=== PATIENT | female | born 1950 | race Caucasian/White ===

== ENCOUNTER 2017-10-03 | Day surgery (SDC) | END 2017-10-03 12:18 | disposition home or self-care (01) ==

== ENCOUNTER → 2018-07-11 | Outpatient (CLI) | payer OTHER ==
[~2018-07-11] MED LIST: AMLO5 PO; CITA20 PO; COCONUT OIL1000 MG PO; HYDR1TAB94 PO; LANS15EC PO; Lovastatin20 MG PO; MAGNESIUM PO; METO50ER PO; Mirapex0.125 MG PO; TRAZ100 PO
[2018-07-11 19:27] LABS: BASOPHILS ABSOLUTE AUTO 0.02 K/mm3 (0.00-0.23); BASOPHILS PERCENT AUTO 0 % (0-2); EOSINOPHILS ABSOLUTE AUTO 0.23 K/mm3 (0.00-0.68); EOSINOPHILS PERCENT AUTO 4 % (0-6); Hematocrit 38.6 % (33.0-51.0); Hemoglobin 12.8 g/dL (11.5-16.0); IMMATURE GRAN ABSOLUTE AUTO 0.03 K/mm3 (0.00-0.10); IMMATURE GRAN PERCENT AUTO 1 % (0-1); LYMPHOCYTES PERCENT AUTO 29 % (21-46); MONOCYTES ABSOLUTE AUTO 0.52 K/mm3 (0.16-1.47); MONOCYTES PERCENT AUTO 9 % (4-13); Mean Corpuscular HGB 29.8 pg (26.0-34.0); Mean Corpuscular HGB Conc 33.2 g/dL (31.5-36.5); Mean Corpuscular Volume 90 fL (80-100); Mean Platelet Volume 11.3 fL (9.1-12.4); NEUTROPHILS ABSOLUTE AUTO 3.43 K/mm3 (1.96-9.15); NEUTROPHILS PERCENT AUTO 58 % (41-73); Platelet Count 247 K/mm3 (150-400); RDW Coefficient Variation 13.7 % (11.7-14.2); RDW Standard Deviation 44.8 fL (35.1-46.3); White Blood Cell Count 5.93 K/mm3 (4.00-11.30)
== END | disposition home or self-care (01) ==
LOC: LAB SHORT 18:54 → LAB 18:54
PROVIDERS: Hospitalist
DX: D50.9 Iron deficiency anemia, unspecified (principal)
CPT/HCPCS: 83540; 83550; 85025

== ENCOUNTER 2020-11-10 10:43 | Day surgery (SDC) | payer OTHER ==
[~2020-11-10] VITALS: Ht 157.5 cm; Wt 98.3 kg
[~2020-11-10 10:43] MED LIST changes: +INULIN PO; +MECL25 PO
== END 2020-11-10 12:47 | disposition home or self-care (01) ==
LOC: ORSCSDS 10:43
PROVIDERS: Surgery
PROC: 0DBL8ZX Excision of Transverse Colon, Via Natural or Artificial Opening Endoscopic, Diagnostic (ICD-10-PCS; principal; 2020-11-10 12:00)
PROC: 0DBN8ZX Excision of Sigmoid Colon, Via Natural or Artificial Opening Endoscopic, Diagnostic (ICD-10-PCS; principal; 2020-11-10 12:00)
PROC: 3E0H8KZ Introduction of Other Diagnostic Substance into Lower GI, Via Natural or Artificial Opening Endoscopic (ICD-10-PCS; principal; 2020-11-10 12:00)
DX: Z12.11 Encounter for screening for malignant neoplasm of colon (principal); Z85.038 Personal history of other malignant neoplasm of large intestine; D12.3 Benign neoplasm of transverse colon; D12.5 Benign neoplasm of sigmoid colon; K57.30 Diverticulosis of large intestine without perforation or abscess without bleeding; K21.9 Gastro-esophageal reflux disease without esophagitis; E78.5 Hyperlipidemia, unspecified; I10 Essential (primary) hypertension; G47.33 Obstructive sleep apnea (adult) (pediatric); Z79.899 Other long term (current) drug therapy
CPT/HCPCS: 88305; J2704

== ENCOUNTER → 2021-08-19 | Outpatient (CLI) | payer OTHER ==
[2021-08-19 15:50] LABS: Anion Gap 2 mmol/L (6-16); Blood Urea Nitrogen 8 mg/dL (8-24); Bun/Creatinine Ratio 9.1 (12.0-20.0); CO2, Blood 34 mmol/L (21-32); Calcium, Blood 9.1 mg/dL (8.5-10.1); Chloride, Blood 103 mmol/L (98-108); Creatinine, Blood 0.88 mg/dL (0.40-1.00); Glomerular Filtration Rate >60 (60-); Glucose, Blood 165 mg/dL (70-99); Potassium, Blood 3.9 mmol/L (3.5-5.5); Sodium, Blood 139 mmol/L (136-145)
== END | disposition home or self-care (01) ==
LOC: LAB SHORT 11:40
PROVIDERS: Hospitalist
DX: I10 Essential (primary) hypertension (principal)
CPT/HCPCS: 80048

== ENCOUNTER → 2023-12-25 | Outpatient (CLI) | payer OTHER ==
[2023-12-28 21:48] LABS: ANTINUCLEAR AB (ANA),HEP-2,IGG <1:80 (<1:80)
== END | disposition home or self-care (01) ==
LOC: LAB 17:32 → LAB SHORT 17:32
PROVIDERS: Hospitalist
DX: M25.50 Pain in unspecified joint (principal)
CPT/HCPCS: 85651; 86039; 86430

== ENCOUNTER 2024-12-26 07:42 | Day surgery (SDC) | payer OTHER ==
[~2024-12-26] VITALS: Ht 157.5 cm; Wt 110.3 kg
[~2024-12-26 07:42] MED LIST changes: +ALPRAZOLAM0.5 M1 PO; +Balanced Salt Epinephrine Irrigation Solution 500 mL IR SCH; +COCONUT OIL; +Moxifloxacin HCL 0.5 MG/0.1 ML 0.4MLSYR LEFTEYE SCH; +Ondansetron 4 MG SoluTab MM PRN; +PHENYLEPHRINE\\TROPICAMIDE\\TETRACAINE OPHTHALMIC DILATING SOLN LEFTEYE PRN; +Povidone-Iodine 450 DROP/30 ML Solution LEFTEYE SCH; +Povidone-Iodine 450 DROP/30 ML Solution ONE; +Tetracaine HCl/Pf 0.5% Opth Soln 4 ml ONE; +Triamcinolone Inj Susp 40 MG / ML 1ML Vial INJ SCH; +Triamcinolone Inj Susp 40 MG / ML 1ML Vial ONE
--- NOTE | 2024-12-26 08:59 | NUR ---
12/26/24 0859 Eileen Ramey ANXIETY PRIOR TO VALIUM WAS 5/10. vALIUM 10MG GIVEN AT 0843. pULSE OX IN PLACE SHOWING SPO2 AT 94%. TETRACAINE IN AT 0846 PLEDGETT IN AT 0847 PT TOLERATED WELL. CALL LIGHT WITHIN REACH.
--- NOTE | 2024-12-26 09:25 | NUR ---
12/26/24 0925 Yumiko Doherty HR: 64 BP: 151/73 SPO2: 95% ON 10L BLOW BY O2
[2024-12-26 09:46] VITALS: BP 132/67
--- NOTE | 2024-12-26 09:47 | NUR ---
12/26/24 0947 Briseyda Santillan RN CALLED SON AND GAVE ESTIMATED DISCHARGE TIME
== END 2024-12-26 09:58 | disposition home or self-care (01) ==
LOC: ORSCSDS 07:42
PROVIDERS: Ophthalmology
PROC: 08RK3JZ Replacement of Left Lens with Synthetic Substitute, Percutaneous Approach (ICD-10-PCS; principal; 2024-12-26 09:30)
DX: H25.813 Combined forms of age-related cataract, bilateral (principal); E78.5 Hyperlipidemia, unspecified; I10 Essential (primary) hypertension; Z79.899 Other long term (current) drug therapy
CPT/HCPCS: A9270; J3301; V2632

== ENCOUNTER 2025-01-02 07:52 | Day surgery (SDC) | payer OTHER ==
[~2025-01-02] VITALS: Ht 157.5 cm; Wt 109.8 kg
[~2025-01-02 07:52] MED LIST changes: -Moxifloxacin HCL 0.5 MG/0.1 ML 0.4MLSYR LEFTEYE SCH; +Moxifloxacin HCL 0.5 MG/0.1 ML 0.4MLSYR RIGHTEYE SCH; -PHENYLEPHRINE\\TROPICAMIDE\\TETRACAINE OPHTHALMIC DILATING SOLN LEFTEYE PRN; +PHENYLEPHRINE\\TROPICAMIDE\\TETRACAINE OPHTHALMIC DILATING SOLN RIGHTEYE PRN; -Povidone-Iodine 450 DROP/30 ML Solution LEFTEYE SCH; +Povidone-Iodine 450 DROP/30 ML Solution RIGHTEYE SCH
--- NOTE | 2025-01-02 08:53 | NUR ---
01/02/25 0853 Eileen Raemy PTS ANXIETY WAS A 4/10 PRIOR TO VALIUM WHICH WAS GIVEN AT 0846. PULSE OXIMETRY IN PLACE SHOWING SPO2 95% ON RA. TETRACAINE IN AT 0847 PLEDGETT IN AT 0848 PT TOLERATED WELL. CALL LIGHT IN REACH.
--- NOTE | 2025-01-02 09:21 | NUR ---
01/02/25 0921 Ca Nelson VITALS AT 0918 BP: 201/90 (OK TO PROCEED PER DR ALDRICH) P: 69 O2: 100% WITH 10 LITERS OF BLOW BY OXYGEN
[2025-01-02 09:36] VITALS: BP 183/76
== END 2025-01-02 09:54 | disposition home or self-care (01) ==
LOC: ORSCSDS 07:52
PROVIDERS: Ophthalmology
PROC: 08RJ3JZ Replacement of Right Lens with Synthetic Substitute, Percutaneous Approach (ICD-10-PCS; principal; 2025-01-02 09:30)
DX: H25.811 Combined forms of age-related cataract, right eye (principal); Z96.1 Presence of intraocular lens; I10 Essential (primary) hypertension; E78.5 Hyperlipidemia, unspecified; G47.33 Obstructive sleep apnea (adult) (pediatric); G25.81 Restless legs syndrome; K21.9 Gastro-esophageal reflux disease without esophagitis; E66.9 Obesity, unspecified; Z79.899 Other long term (current) drug therapy
CPT/HCPCS: A9270; J3301; V2632

== ENCOUNTER 2025-01-02 16:28 | Inpatient (IN) | payer OTHER ==
[~2025-01-02] VITALS: Ht 157.5 cm; Wt 111.2 kg
[~2025-01-02 16:28] MED LIST changes: -Balanced Salt Epinephrine Irrigation Solution 500 mL IR SCH; -Moxifloxacin HCL 0.5 MG/0.1 ML 0.4MLSYR RIGHTEYE SCH; -Ondansetron 4 MG SoluTab MM PRN; -PHENYLEPHRINE\\TROPICAMIDE\\TETRACAINE OPHTHALMIC DILATING SOLN RIGHTEYE PRN; -Povidone-Iodine 450 DROP/30 ML Solution ONE; -Povidone-Iodine 450 DROP/30 ML Solution RIGHTEYE SCH; -Tetracaine HCl/Pf 0.5% Opth Soln 4 ml ONE; -Triamcinolone Inj Susp 40 MG / ML 1ML Vial INJ SCH; -Triamcinolone Inj Susp 40 MG / ML 1ML Vial ONE
[2025-01-02] MEDS ORDERED: Ondansetron HCl 2 MG / ML 2ML Vial IV ONE (16:50)
[2025-01-02 16:57] LABS: BASOPHILS ABSOLUTE AUTO 0.01 K/mm3 (0.00-0.23); BASOPHILS PERCENT AUTO 0 % (0-2); EOSINOPHILS ABSOLUTE AUTO 0.08 K/mm3 (0.00-0.68); EOSINOPHILS PERCENT AUTO 2 % (0-6); Hematocrit 32.6 % (33.0-51.0); Hemoglobin 10.1 g/dL (11.5-16.0); IMMATURE GRAN ABSOLUTE AUTO 0.05 K/mm3 (0.00-0.10); IMMATURE GRAN PERCENT AUTO 1 % (0-1); LYMPHOCYTES ABSOLUTE AUTO 1.06 K/mm3 (0.84-5.20); LYMPHOCYTES PERCENT AUTO 20 % (21-46); MONOCYTES ABSOLUTE AUTO 0.67 K/mm3 (0.16-1.47); MONOCYTES PERCENT AUTO 13 % (4-13); Mean Corpuscular HGB Conc 31.0 g/dL (31.5-36.5); Mean Corpuscular Volume 80 fL (80-100); NEUTROPHILS ABSOLUTE AUTO 3.43 K/mm3 (1.96-9.15); NEUTROPHILS PERCENT AUTO 65 % (41-73); NRBC ABSOLUTE 0.00 K/mm3 (0.00-0.02); NRBC Auto 0.0 /100 WBC (0.0-0.2); Platelet Count 198 K/mm3 (150-400); RDW Coefficient Variation 16.3 % (11.7-14.2); RDW Standard Deviation 47.0 fL (35.1-46.3)
[2025-01-02] MEDS ORDERED: Albuterol Soln 2.5 MG/0.5 ML UD INH SCH (17:15)
[2025-01-02 17:20] LABS: Alanine Aminotransfer (ALT/SGP 28.0 U/L (12-78); Albumin, Blood 3.6 g/dL (3.4-5.0); Albumin/Globulin Ratio 1.1 (0.8-1.8); Anion Gap 7.0 mmol/L (3-11); Aspartate Aminotrans (AST/SGOT 23.0 U/L (12-37); Bilirubin, Total 1.1 mg/dL (0.1-1.0); Blood Urea Nitrogen 6.0 mg/dL (8-24); CO2, Blood 31.0 mmol/L (21-32); Calcium, Blood 9.1 mg/dL (8.5-10.1); Chloride, Blood 102.0 mmol/L (98-108); Creatinine, Blood 0.87 mg/dL (0.40-1.00); Globulin, Blood 3.3 g/dL (2.2-4.0); Glucose, Blood 167.0 mg/dL (70-99); Potassium, Blood 3.4 mmol/L (3.5-5.5); Sodium, Blood 137.0 mmol/L (136-145); Total Protein, Blood 6.9 g/dL (6.4-8.2)
[2025-01-02] MEDS ORDERED: Albuterol 2.5 MG/3 ML VIAL INH SCH (17:35)
[2025-01-02] MEDS ORDERED: Albuterol 2.5 MG/3 ML VIAL INH ONE (17:40)
[2025-01-02 17:45] LABS: CORONAVIRUS COVID-19 AG Negative (NEGATIVE)
[2025-01-02] MEDS ORDERED: CefTRIAXone Sodium 1,000 MG in NS 100 ML IV ONE (19:25)
[2025-01-02] MEDS ORDERED: Ondansetron HCl 2 MG / ML 2ML Vial IV PRN (20:45)
[2025-01-02] MEDS ORDERED: Lactobacil 2-S.Thermo-Bifido 1 1 Cap PO SCH (21:00)
[2025-01-02] MEDS ORDERED: NS 1,000 ML IV ONE ×2 (21:00→23:55)
[2025-01-02] MEDS ORDERED: NS 1,000 ML IV SCH (22:00)
[2025-01-02 22:33] VITALS: BP 169/64
--- NOTE | 2025-01-02 23:58 | NUR ---
CRITICAL LAB: LACTIC 3.2 LACTIC INCREASED FROM 2.7 EARLIER S/P 1000ML NS BOLUS FROM ER. SPOKE WITH EARL MAHONEY NP AND RECEIVED ORDERS TO GIVE ONE TIME BOLUS 1000ML NS IV NOW AND RECHECK LACTIC WITH AM LABS. BOTH ENTERED.
--- NOTE | 2025-01-03 00:14 | NUR ---
NS @ 100 PAUSED WHILE BOLUS NS INFUSING.
--- NOTE | 2025-01-03 02:15 | NUR ---
Bolus NS completed. NS @ 100mLs/hour resumed.
[2025-01-03 03:44] VITALS: BP 135/62
[2025-01-03 06:13] LABS: BASOPHILS ABSOLUTE AUTO 0.01 K/mm3 (0.00-0.23); BASOPHILS PERCENT AUTO 0 % (0-2); EOSINOPHILS ABSOLUTE AUTO 0.02 K/mm3 (0.00-0.68); EOSINOPHILS PERCENT AUTO 1 % (0-6); Hematocrit 28.6 % (33.0-51.0); Hemoglobin 8.8 g/dL (11.5-16.0); IMMATURE GRAN ABSOLUTE AUTO 0.05 K/mm3 (0.00-0.10); IMMATURE GRAN PERCENT AUTO 1 % (0-1); LYMPHOCYTES ABSOLUTE AUTO 0.92 K/mm3 (0.84-5.20); LYMPHOCYTES PERCENT AUTO 24 % (21-46); MONOCYTES ABSOLUTE AUTO 0.58 K/mm3 (0.16-1.47); MONOCYTES PERCENT AUTO 15 % (4-13); Mean Corpuscular HGB Conc 30.8 g/dL (31.5-36.5); Mean Corpuscular Volume 82 fL (80-100); NEUTROPHILS ABSOLUTE AUTO 2.33 K/mm3 (1.96-9.15); NEUTROPHILS PERCENT AUTO 60 % (41-73); NRBC ABSOLUTE 0.00 K/mm3 (0.00-0.02); NRBC Auto 0.0 /100 WBC (0.0-0.2); Platelet Count 164 K/mm3 (150-400); RDW Coefficient Variation 16.9 % (11.7-14.2); RDW Standard Deviation 50.5 fL (35.1-46.3)
[2025-01-03 06:31] LABS: Anion Gap 7.0 mmol/L (3-11); Blood Urea Nitrogen 5.0 mg/dL (8-24); CO2, Blood 28.0 mmol/L (21-32); Calcium, Blood 7.6 mg/dL (8.5-10.1); Chloride, Blood 110.0 mmol/L (98-108); Creatinine, Blood 0.78 mg/dL (0.40-1.00); Glucose, Blood 137.0 mg/dL (70-99); Potassium, Blood 4.1 mmol/L (3.5-5.5); Sodium, Blood 141.0 mmol/L (136-145)
[2025-01-03 07:39] VITALS: BP 161/67
--- NOTE | 2025-01-03 07:41 | NUR ---
Shift Summary AOx4. Arrived to unit at 2227 via gurney and self transferred to bed. Pleasant/cooperative. Following instructions well. States feeling weaker than usual. Instructed to call for assistance w/ ambulation to bathroom considering new oxygen supplementation needs, connected IV lines, and shortness of breath. Independent to the bedside commode. Denies dizziness. F/U lactic this am is 1.6 from 3.2. NS @ 100 continuous. Tolerating CPAP the whole night. Denies pain. Did not want to get into a hospital gown. Continent w/ bowel and bladder. Calls appropriately for needs.
[2025-01-03] MEDS ORDERED: Enoxaparin 40 MG/0.4 ML SYR SC SCH (09:00)
[2025-01-03] MEDS ORDERED: Albuterol Soln 2.5 MG/0.5 ML UD INH PRN (11:10)
[2025-01-03] MEDS ORDERED: Albuterol 2.5 MG/3 ML VIAL ONE (11:25)
[2025-01-03 14:45] LABS: Ferritin, Serum 15.0 ng/mL (8-252); Total Iron Binding Capacity 376.0 ug/dL (250-450)
[2025-01-03 15:03] VITALS: BP 177/64
[2025-01-03] MEDS ORDERED: Ketorolac 0.5% Opth Soln BTL RIGHTEYE SCH ×2 (17:00)
[2025-01-03] MEDS ORDERED: PrednisoLONE 1% Opth Susp 5 ML RIGHTEYE SCH ×2 (17:00)
[2025-01-03] MEDS ORDERED: Ofloxacin 0.3% Opth Soln 5 ML RIGHTEYE SCH ×2 (17:00)
--- NOTE | 2025-01-03 18:21 | NUR ---
SHIFT SUMMARY PT CONT LEVEL OF CARE. PT NOTED TO BE A&OX4 AND IND IN ROOM PT CALLS APPRORIATE AND IS ABLE TO COMMUNICATE HER NEEDS. PT HAD CATARACT SURGERY TO HER RIGHT EYE 01/02 AND WAS RESTARTED TODAY BACK ON HER EYE GTTS. PT ALSO STARTED ON PRN NEB TX PT LUNGS NOTED TO BE WHEEZY T/O. PT CONT WITH 2L/NC AND CPAP AND NOC.
[2025-01-03 19:46] VITALS: BP 180/72
[2025-01-03] MEDS ORDERED: CefTRIAXone Sodium 1,000 MG in NS 100 ML IV SCH (20:00)
[2025-01-04 04:54] VITALS: BP 171/55
[2025-01-04 05:29] LABS: BASOPHILS ABSOLUTE AUTO 0.02 K/mm3 (0.00-0.23); BASOPHILS PERCENT AUTO 0 % (0-2); EOSINOPHILS ABSOLUTE AUTO 0.07 K/mm3 (0.00-0.68); EOSINOPHILS PERCENT AUTO 1 % (0-6); Hematocrit 30.2 % (33.0-51.0); Hemoglobin 9.3 g/dL (11.5-16.0); IMMATURE GRAN ABSOLUTE AUTO 0.06 K/mm3 (0.00-0.10); IMMATURE GRAN PERCENT AUTO 1 % (0-1); LYMPHOCYTES ABSOLUTE AUTO 1.34 K/mm3 (0.84-5.20); LYMPHOCYTES PERCENT AUTO 26 % (21-46); MONOCYTES ABSOLUTE AUTO 0.66 K/mm3 (0.16-1.47); MONOCYTES PERCENT AUTO 13 % (4-13); Mean Corpuscular HGB Conc 30.8 g/dL (31.5-36.5); Mean Corpuscular Volume 83 fL (80-100); NEUTROPHILS ABSOLUTE AUTO 3.02 K/mm3 (1.96-9.15); NEUTROPHILS PERCENT AUTO 58 % (41-73); NRBC ABSOLUTE 0.00 K/mm3 (0.00-0.02); NRBC Auto 0.0 /100 WBC (0.0-0.2); Platelet Count 182 K/mm3 (150-400); RDW Coefficient Variation 17.1 % (11.7-14.2); RDW Standard Deviation 51.8 fL (35.1-46.3)
[2025-01-04 06:17] LABS: Anion Gap 6.0 mmol/L (3-11); Blood Urea Nitrogen 5.0 mg/dL (8-24); CO2, Blood 31.0 mmol/L (21-32); Calcium, Blood 8.2 mg/dL (8.5-10.1); Chloride, Blood 102.0 mmol/L (98-108); Creatinine, Blood 0.8 mg/dL (0.40-1.00); Glucose, Blood 148.0 mg/dL (70-99); Potassium, Blood 3.8 mmol/L (3.5-5.5); Sodium, Blood 135.0 mmol/L (136-145)
--- NOTE | 2025-01-04 06:30 | NUR ---
SHIFT SUMMARY: Pt is admitted for PNA and is a full code. Is alert and able to make needs known. ADLs have been IND to bedside commode. Denies pain or discomfort when asked. Iv to left AC is patent with dressing that is CDI. has worn O2 at 2L via NC when note wearing the CPAP with 2L bleed in to maintain SPO2 greater than 90%
[2025-01-04 07:35] VITALS: BP 195/71
[2025-01-04] MEDS ORDERED: Iron Dextran 50 MG / ML 2ML Vial IV ONE (08:45)
[2025-01-04] MEDS ORDERED: Iron Dextran 975 MG in NS 250 ML IV ONE (10:00)
[2025-01-04 15:23] VITALS: BP 170/72
--- NOTE | 2025-01-04 18:16 | NUR ---
THIS CASING CREW HAS REVIEWED AND AGREES WITH ALL NOTES AND ASSESSMENTS BY MASON LIMA.
[2025-01-04 19:52] VITALS: BP 178/73
[2025-01-05 04:20] VITALS: BP 139/63
[2025-01-05 07:09] LABS: BASOPHILS ABSOLUTE AUTO 0.01 K/mm3 (0.00-0.23); BASOPHILS PERCENT AUTO 0 % (0-2); EOSINOPHILS ABSOLUTE AUTO 0.16 K/mm3 (0.00-0.68); EOSINOPHILS PERCENT AUTO 4 % (0-6); Hematocrit 31.5 % (33.0-51.0); Hemoglobin 9.8 g/dL (11.5-16.0); IMMATURE GRAN ABSOLUTE AUTO 0.05 K/mm3 (0.00-0.10); IMMATURE GRAN PERCENT AUTO 1 % (0-1); LYMPHOCYTES ABSOLUTE AUTO 1.32 K/mm3 (0.84-5.20); LYMPHOCYTES PERCENT AUTO 32 % (21-46); MONOCYTES ABSOLUTE AUTO 0.57 K/mm3 (0.16-1.47); MONOCYTES PERCENT AUTO 14 % (4-13); Mean Corpuscular HGB Conc 31.1 g/dL (31.5-36.5); Mean Corpuscular Volume 82 fL (80-100); NEUTROPHILS ABSOLUTE AUTO 2.05 K/mm3 (1.96-9.15); NEUTROPHILS PERCENT AUTO 49 % (41-73); NRBC ABSOLUTE 0.00 K/mm3 (0.00-0.02); NRBC Auto 0.0 /100 WBC (0.0-0.2); Platelet Count 181 K/mm3 (150-400); RDW Coefficient Variation 16.6 % (11.7-14.2); RDW Standard Deviation 48.7 fL (35.1-46.3)
[2025-01-05 07:16] VITALS: BP 181/76
[2025-01-05 07:29] LABS: Anion Gap 8.0 mmol/L (3-11); Blood Urea Nitrogen 6.0 mg/dL (8-24); CO2, Blood 34.0 mmol/L (21-32); Calcium, Blood 9.2 mg/dL (8.5-10.1); Chloride, Blood 99.0 mmol/L (98-108); Creatinine, Blood 0.78 mg/dL (0.40-1.00); Glucose, Blood 162.0 mg/dL (70-99); Potassium, Blood 3.5 mmol/L (3.5-5.5); Sodium, Blood 137.0 mmol/L (136-145)
[2025-01-05 09:34] VITALS: BP 145/59
[2025-01-05] MEDS ORDERED: AZIT250 PO (12:40)
[2025-01-05] MEDS ORDERED: HYDCHL25 PO (12:41)
[2025-01-05] MEDS ORDERED: ACULAR5 M1 RIGHTEYE (12:44)
[2025-01-05] MEDS ORDERED: LOSA25 PO (12:45)
[2025-01-05] MEDS ORDERED: OCUFLOX511 RIGHTEYE (12:46)
[2025-01-05] MEDS ORDERED: PRED FORTE5 M1 RIGHTEYE (12:48)
--- NOTE | 2025-01-05 13:45 | NUR ---
DISCHARGE SUMMARY PATIENT AND FAMILY IN ROOM, WE WENT OVER THE DISCHARGE PLANS AND EDUCATION. IV WAS REMOVED. PATIENT ESCORTED BY WHEELCHAIR ON 2L OF O2. NO DISTRESS NOTED, PATIENT WAS ALERT AND ORIENTED.
--- NOTE | 2025-01-05 16:17 | NUR ---
THIS HOUSE MOVING SUPERVISOR HAS REVIEWED AND AGREES WITH ALL NOTES AND ASSESSMENTS BY MASON LIMA.
== END 2025-01-05 13:25 | disposition home or self-care (01) | DRG 193 ==
LOC: ER 16:28 → MEDS 20:42
PROVIDERS: Emergency Medicine; Internal Medicine; Nurse Practitioner Acute Care; ADMIT Internal Medicine
PROC: 5A09357 Assistance with Respiratory Ventilation, Less than 24 Consecutive Hours, Continuous Positive Airway Pressure (ICD-10-PCS; principal; 2025-01-02)
PROC: 3E03329 Introduction of Other Anti-infective into Peripheral Vein, Percutaneous Approach (ICD-10-PCS; 2025-01-02)
DX: J12.9 Viral pneumonia, unspecified (principal); J96.01 Acute respiratory failure with hypoxia; Z68.41 Body mass index [BMI] 40.0-44.9, adult; G47.33 Obstructive sleep apnea (adult) (pediatric); E66.01 Morbid (severe) obesity due to excess calories; I10 Essential (primary) hypertension; E78.5 Hyperlipidemia, unspecified; F41.9 Anxiety disorder, unspecified; G25.81 Restless legs syndrome; E87.6 Hypokalemia; D64.9 Anemia, unspecified; H25.811 Combined forms of age-related cataract, right eye; K21.9 Gastro-esophageal reflux disease without esophagitis; E66.9 Obesity, unspecified; Z85.038 Personal history of other malignant neoplasm of large intestine; Z99.81 Dependence on supplemental oxygen; Z96.1 Presence of intraocular lens; Z79.899 Other long term (current) drug therapy
CPT/HCPCS: 36415; 71046; 80048; 80053; 82728; 83540; 83550; 83605; 84145; 84484; 85025; 87428-QW; 87449; 93005; 93010; 94640; 94660; 94664; 94762; 96365; 96375; 99285-25; A9270; J0456; J0696; J1650; J1750; J2405; J3301; J7030; J7050; V2632